=== PATIENT | female | born 1955 | race Caucasian/White ===

== ENCOUNTER 2016-12-13 16:08 | Emergency (ER) | payer OTHER ==
--- NOTE | 2016-12-13 16:22 | CPEKG ---
Heart Rate: 94 RR Interval: 638 P-R Interval: 180 QRSD Interval: 86 QT Interval: 376 QTC Interval: 471 P Elmore: 75 QRS Elmore: -1 T Wave Elmore: 69 EKG Severity - NORMAL ECG - EKG Impression: SINUS RHYTHM Electronically Signed By: Saul Javier 13-Dec-2016 16:47:30
--- NOTE | 2016-12-13 16:38 | EDPHY ---
H & P Stated Complaint: cp sob x 3 days Time Seen by Provider: 12/13/16 16:23 HPI/ROS: CHIEF COMPLAINT: Chest pain, dyspnea HISTORY OF PRESENT ILLNESS: The patient presents to the ED with 3 days of a vague chest pressure and mild dyspnea. She reports her symptoms are variable however never entirely resolved. She denies any pleuritic chest pain. She has had some mild symptoms of indigestion characterized by "heartburn." The patient denies fever, cough, weight gain. She has no prior history of cardiac or pulmonary disease. The patient does have a history of breast cancer status post bilateral mastectomy 2007. She also has thrombocytosis. The patient states her symptoms are mild in nature. She denies any acute abdominal pain. She denies any obvious precipitant to the symptoms. REVIEW OF SYSTEMS: A comprehensive 10 point review of systems is otherwise negative aside from elements mentioned in the history of present illness. Source: Patient Exam Limitations: No limitations - Personal History Current Tetanus/Diphtheria Vaccine: Yes - Medical/Surgical History Hx Asthma: No Hx Chronic Respiratory Disease: No Hx Diabetes: No Hx Cardiac Disease: No Hx Renal Disease: No Hx Cirrhosis: No Hx Alcoholism: No Hx HIV/AIDS: No Hx Splenectomy or Spleen Trauma: No Other PMH: breast cancer/mastectomy - Social History Smoking Status: Never smoked - Physical Exam Exam: General Appearance: Alert, no distress Eyes: Pupils equal and round no pallor or injection ENT, Mouth: Mucous membranes moist Respiratory: There are no retractions, lungs are clear to auscultation Cardiovascular: Regular rate and rhythm Gastrointestinal: Abdomen is soft and nontender, no masses, bowel sounds normal Neurological: A&O, normal motor function, normal sensory exam, normal cranial nerves Skin: Warm and dry, no rashes Musculoskeletal: Neck is supple nontender Extremities: symmetrical, full range of motion Constitutional: Initial Vital Signs Temperature (C) 36.5 C 12/13/16 16:11 Heart Rate 90 12/13/16 16:11 Respiratory Rate 18 12/13/16 16:11 Blood Pressure 158/111 H 12/13/16 16:11 O2 Sat (%) 98 12/13/16 16:11 O2 Delivery Mode Room Air Allergies/Adverse Reactions: No Known Allergies Allergy (Unverified 12/13/16 16:11) Home Medications: Medication Instructions Recorded Letrozole 12/13/16 Medical Decision Making - Diagnostics EKG Interpretation: EKG: Complete interpretation has been separately recorded in the [employer] archive. Summary impression: Sinus rhythm, rate 94 Imaging Results: Imaging Impressions Chest/Thorax CTA 12/13/16 17:20 Impression: 1. No evidence of pulmonary embolus using CT protocol. 2. Normal CT chest. 3. Moderate disk space narrowing along the left side of T8-T9 with endplate sclerosis and osteophyte. ED Course/Re-evaluation: The patient presents to the ED with several days of dyspnea and a vague nonexertional chest discomfort. The patient has no risk factors for coronary artery disease aside from a family medical history. She has had no history of exertional chest pain or shortness of breath. The patient does have a remote history of breast cancer. The patient's workup consisted of an EKG which was normal, a negative troponin, an unremarkable chest x-ray and a slightly positive D-dimer. Given the patient's history of breast cancer, a CT pulmonary angiogram was obtained which demonstrates no evidence of PE, pleural effusion, intrathoracic mass or pneumothorax. The patient was reexamined several times by myself over a 4 hour period. She remained chest pain-free throughout her stay in the emergency department. I have explained to the patient that I feel she is low risk for acute coronary syndrome but we have not fully excluded this entity. Given her family history I did recommend close follow up with Cardiology and even admission to the hospital for observation this evening. The patient prefers to go home and follow up with Cardiology as an outpatient. She does understand that we have not fully exclude occult coronary artery disease and she is comfortable returning to the ED for any progressive or worsening symptoms. Differential Diagnosis: Differential diagnosis considered includes pulmonary embolism, pleurisy, heart failure, pneumonia, pneumothorax, anemia, metabolic abnormality - Data Points Laboratory Results: Laboratory Results 12/13/16 16:14 12/13/16 16:14 12/13/16 12/13/16 12/13/16 16:14 16:14 16:14 WBC 9.12 10^3/uL 10^3/uL (3.80-9.50) RBC 4.88 10^6/uL 10^6/uL (4.18-5.33) Hgb 16.0 g/dL g/dL (12.6-16.3) Hct 44.7 % % (38.0-47.0) MCV 91.6 fL fL (81.5-99.8) MCH 32.8 pg pg (27.9-34.1) MCHC 35.8 g/dL g/dL (32.4-36.7) RDW 13.8 % % (11.5-15.2) Plt Count 840 10^3/uL H 10^3/uL (150-400) MPV 10.4 fL fL (8.7-11.7) Neut % (Auto) 65.0 % % (39.3-74.2) Lymph % (Auto) 23.7 % % (15.0-45.0) [place] % (Auto) 7.8 % % (4.5-13.0) Eos % (Auto) 2.3 % % (0.6-7.6) Baso % (Auto) 1.0 % % (0.3-1.7) Nucleat RBC Rel Count 0.0 % % (0.0-0.2) Absolute Neuts (auto) 5.93 10^3/uL 10^3/uL (1.70-6.50) Absolute Lymphs (auto) 2.16 10^3/uL 10^3/uL (1.00-3.00) Absolute Monos (auto) 0.71 10^3/uL 10^3/uL (0.30-0.80) Absolute Eos (auto) 0.21 10^3/uL 10^3/uL (0.03-0.40) Absolute Basos (auto) 0.09 10^3/uL 10^3/uL (0.02-0.10) Absolute Nucleated RBC 0.00 10^3/uL 10^3/uL (0-0.01) Immature Gran % 0.2 % % (0.0-1.1) Immature Gran # 0.02 10^3/uL 10^3/uL (0.00-0.10) Platelet Estimate INCREASED H (ADEQ) D-Dimer 0.98 ug/mLFEU H ug/mLFEU (0.00-0.50) Sodium 141 mEq/L mEq/L (134-144) Potassium 4.3 mEq/L mEq/L (3.5-5.2) Chloride 104 mEq/L mEq/L (97-110) Carbon Dioxide 25 mEq/l mEq/l (22-31) Anion Gap 12 mEq/L mEq/L (8-16) BUN 11 mg/dL mg/dL (7-23) Creatinine 0.7 mg/dL mg/dL (0.6-1.0) Estimated GFR > 60 Glucose 95 mg/dL mg/dL (70-100) Calcium 10.3 mg/dL mg/dL (8.5-10.4) Troponin I < 0.012 ng/mL ng/mL (0.000-0.034) NT-Pro-B Natriuret Pep 94 pg/mL pg/mL (0-125) Departure - Departure Disposition: Home, Routine, Self-Care Clinical Impression: Chest pain Condition: Good Instructions: Chest Pain (ED) Additional Instructions: 1. Based upon the testing done in the Emergency Department today we see no evidence of a heart attack. 2. We are unable to fully exclude coronary artery disease based upon the testing available in the Emergency Department. 3. For this reason, we would like you to be seen by cardiology for consideration of additional testing within the next 3 days. 4. Please contact the patient safety tech you have been referred to schedule this appointment as soon as possible. Their offices are typically open from 8:30am- 5pm M-F. 5. Please return to the Emergency Department immediately for any recurrent chest pain, difficulty breathing or other concerns. Referrals: Nabeel Lang MD [Medical Doctor] - As per Instructions
[2016-12-13 17:29] LABS: PLATELET COUNT 840 10^3/uL (150-400)
[2016-12-13] MEDS ORDERED: IOPAMIDOL (ISOVUE 370) 100 ML BTL IV ONE (17:56)
[2016-12-13 20:16] VITALS: BP 147/101; PULSE 72; RESP 16; TEMP 98.2; O2SAT 96
== END 2016-12-13 20:16 | disposition home or self-care (01) ==
DX: R07.9 Chest pain, unspecified (principal); Z85.3 Personal history of malignant neoplasm of breast
CPT/HCPCS: Q9967

== ENCOUNTER → 2017-01-20 | Outpatient (CLI) | payer OTHER | LOC: FIMAGING 14:48 | PROVIDERS: ATTEND Internal Medicine Hematology & Oncology | DX: Z13.820 Encounter for screening for osteoporosis (principal); M85.89 Other specified disorders of bone density and structure, multiple sites ==

== ENCOUNTER → 2017-03-09 | Outpatient (CLI) | payer OTHER ==
[~2017-03-09] MED LIST: GADOBUTROL 10 ML VIAL IVP ONE
== END ==
LOC: FIMAGING 15:04
PROVIDERS: ATTEND Internal Medicine Hematology & Oncology
DX: M50.21 Other cervical disc displacement, high cervical region (principal); M48.02 Spinal stenosis, cervical region; M46.92 Unspecified inflammatory spondylopathy, cervical region
CPT/HCPCS: A9585

== ENCOUNTER 2017-07-14 06:01 | Inpatient (IN) | payer OTHER ==
[2017-07-14] MEDS ORDERED: ACETAMINOPHEN 325 MG TAB PO ONE (06:43)
[2017-07-14] MEDS ORDERED: FAMOTIDINE 20 MG TAB PO ONE (06:43)
[2017-07-14] MEDS ORDERED: DEXAMETHASONE 4 MG/ML VIAL IVP ONE (06:43)
[2017-07-14] MEDS ORDERED: LR 1,000 ML IV ONE (06:43)
[2017-07-14] MEDS ORDERED: ceFAZolin 2 GM/DEXTROSE 100 ML IV ONE (06:43)
[2017-07-14] MEDS ORDERED: LIDOCAINE 1% 2 ML INJ ID PRN (06:43)
--- NOTE | 2017-07-14 07:39 | PDANEPAE ---
ANE Past Medical History - Cardiovascular History Hx Hypertension: Yes Hx Arrhythmias: No Hx Chest Pain: No Hx Coronary Artery / Peripheral Vascular Disease: No Hx CHF / Valvular Disease: No Hx Palpitations: No - Pulmonary History Hx COPD: No Hx Asthma/Reactive Airway Disease: No Hx Recent Upper Respiratory Infection: No Hx Oxygen in Use at Home: No Hx Sleep Apnea: No Sleep Apnea Screening Result - Last Documented: Negative - Neurologic History Hx Cerebrovascular Accident: No Hx Seizures: No Hx Dementia: No - Endocrine History Hx Diabetes: No Hypothyroid: No Hyperthyroid: No Obesity: no - Renal History Hx Renal Disorders: No - Liver History Hx Hepatic Disorders: No - Neurological & Psychiatric Hx Hx Neurological and Psychiatric Disorders: No - Cancer History Hx Cancer: Yes Cancer History Comment: breast CA - Congenital Disorder History Hx Congenital Disorders: No - GI History GERD: no Hx Gastrointestinal Disorders: No - Other Health History Other Health History: mild essential thrombocytosis - Chronic Pain History Chronic Pain: No - Surgical History Prior Surgeries: mastectomy bilat. lymph node removal on left. restricted limb on left ANE Review of Systems Review of Systems: - Exercise capacity METS (RN): 5 METS ANE Patient History - Allergies Allergies/Adverse Reactions: No Known Allergies Allergy (Unverified 12/13/16 16:11) - Home Medications Home Medications: Letrozole [Femara 2.5 mg (*)] 2.5 mg PO DAILY 12/13/16 [Last Taken 1 Day Ago ~] Atorvastatin Calcium [Lipitor 40 mg (*)] 40 mg PO DAILY 06/30/17 [Last Taken 2 Days Ago ~07/12/17] Herbals/Supplements -Info Only 1 ea PO DAILY 06/30/17 [Last Taken 2 Weeks Ago ~ 06/30/17] Metoprolol Succinate [Toprol Xl] 12.5 mg PO DAILY 06/30/17 [Last Taken 2 Days Ago ~07/12/17] Multivitamins [Multivitamin (*)] 1 each PO DAILY 06/30/17 [Last Taken 2 Weeks Ago ~06/30/17] - NPO status NPO Since - Liquids (Date): 07/14/17 NPO Since - Liquids (Time): 04:45 NPO Since - Solids (Date): 07/13/17 NPO Since - Solids (Time): 19:00 - Anes Hx Anes Hx: no prior problems - Smoking Hx Smoking Status: Never smoked - Alcohol Use Alcohol Use: Rarely - Family Anes Hx Family Anes Hx: neg - N/A Family Hx Anesthesia Complications: none ANE Labs/Vital Signs - Vital Signs Blood Pressure: 157/97 Heart Rate: 84 Respiratory Rate: 16 O2 Sat (%): 100 Height: 180.34 cm Weight: 69.4 kg ANE Physical Exam - Airway Neck exam: FROM Mallampati Score: Class 2 Mouth exam: normal dental/mouth exam - Pulmonary Pulmonary: no respiratory distress, no rales or rhonchi, clear to auscultation - Cardiovascular Cardiovascular: regular rate and rhythym, no murmur, rub, or gallop - ASA Status ASA Status: II ANE Anesthesia Plan Anesthesia Plan: MAC, spinal Total IV Anesthesia: No
[2017-07-14] MEDS ORDERED: TRANEXAMIC ACID 3,000 MG in NS (SYRINGE) 50 ML IRR ONE (08:15)
[2017-07-14] MEDS ORDERED: ROPIVACAINE 0.2% 80 MG, EPINEPHrine 0.2 MG, KETOROLAC TROMETHAMINE 30 MG in SYRINGE 0 ML IU ONE (08:15)
[2017-07-14] MEDS ORDERED: TRANEXAMIC ACID 3,000 MG/50 ML BAG IRR ONE (08:17)
[2017-07-14] MEDS ORDERED: MIDAZOLAM 2 MG/2 ML VIAL IVP ONE (08:45)
[2017-07-14] MEDS ORDERED: MIDAZOLAM 2 MG/2 ML VIAL ONE (08:49)
[2017-07-14] MEDS ORDERED: fentaNYL 100 MCG/2 ML INJ ONE ×2 (09:02→10:54)
[2017-07-14] MEDS ORDERED: PROPOFOL/EMULSION 500 MG/50 ML BOTTLE IV ONE (09:02)
--- NOTE | 2017-07-14 09:27 | PDHPUP ---
History & Physical Update H&P update statement: This history and physical update is based on an assessment of the patient which was completed after admission or registration (within 24 hours), but prior to the surgery/procedure. H&P update: H&P reviewed & patient examined, no change in patient's condition since H&P completed
[2017-07-14] MEDS ORDERED: PHENYLEPHRINE HCL 100 MCG/ML SYR ONE (10:03)
[2017-07-14] MEDS ORDERED: BISACODYL 10 MG SUPP PR PRN (10:31)
[2017-07-14] MEDS ORDERED: TEMAZEPAM 15 MG CAP PO PRN (10:31)
[2017-07-14] MEDS ORDERED: MAGNESIUM HYDROXIDE 30 ML UDCUP PO PRN (10:31)
[2017-07-14] MEDS ORDERED: DIPHENOXYLATE/ATROPINE LOMOTIL 1 TAB PO PRN (10:31)
[2017-07-14] MEDS ORDERED: POLYETHYLENE GLYCOL 3350 17 GM PKT PO PRN (10:31)
[2017-07-14] MEDS ORDERED: ONDANSETRON DISINTEGRATING 4 MG TAB PO PRN (10:31)
[2017-07-14] MEDS ORDERED: diphenhydrAMINE 25 MG CAP PO PRN (10:31)
[2017-07-14] MEDS ORDERED: PROMETHAZINE HCL 25 MG/ML INJ IVP PRN ×2 (10:31→11:00)
[2017-07-14] MEDS ORDERED: CYCLOBENZAPRINE 10 MG TAB PO PRN (10:31)
[2017-07-14] MEDS ORDERED: ONDANSETRON 4 MG/2 ML VIAL IVP PRN ×2 (10:31→11:00)
[2017-07-14] MEDS ORDERED: LACTULOSE 20 GM/30 ML UDCUP PO PRN (10:31)
[2017-07-14] MEDS ORDERED: METOCLOPRAMIDE 10 MG/2 ML VIAL IVP PRN (10:31)
[2017-07-14] MEDS ORDERED: PROMETHAZINE HCL 25 MG SUPPR PR PRN (10:31)
--- NOTE | 2017-07-14 10:34 | POSTOPPROG ---
Post Op Note Date of Operation: 07/14/17 Surgeon: Sreedhar Pressley Nursing Officer: bright pressley Anesthesiologist: dr. booker Anesthesia: Spinal Pre-op Diagnosis: right hip OA Post-op Diagnosis: same Indication: right hip pain due to OA that failed conservative measures Procedure: R BRYSON Findings: severe hip OA Inf/Abcess present in the surg proc area at time of surgery?: No EBL: 100-500
[2017-07-14] MEDS ORDERED: epHEDrine SULFATE 10 MG/ML SYR IVP PRN (11:00)
[2017-07-14] MEDS ORDERED: oxyCODONE IR 5 MG TAB PO PRN (11:00)
[2017-07-14] MEDS ORDERED: ACETAMINOPHEN 500 MG TAB PO PRN (11:00)
[2017-07-14] MEDS ORDERED: HYDROmorphONE/DILAUDID 1 MG/ML INJ IVP PRN (11:00)
[2017-07-14] MEDS ORDERED: LR 500 ML IV PRN (11:00)
[2017-07-14] MEDS ORDERED: LABETALOL HCL 5 MG/ML 20 ML MDV IVP PRN (11:00)
[2017-07-14] MEDS ORDERED: HYDROCODONE/APAP 5/325 TAB PO PRN (11:00)
[2017-07-14] MEDS ORDERED: PHENYLEPHRINE HCL 100 MCG/ML SYR IVP PRN (11:00)
[2017-07-14] MEDS ORDERED: NALOXONE HCL 0.4 MG/ML INJ IVP PRN (11:00)
--- NOTE | 2017-07-14 11:02 | POSTANESTH ---
Post Anesthetic Evaluation Cardiovascular Status: Normal, Stable Respiratory Status: Normal, Stable Level of Consciousness/Mental Status: Can Participate in Eval Pain Control: Adequate, Prn Tx Ordered Nausea/Vomiting Control: Adequate, Prn Tx Ordered Complications Possibly Related to Anesthesia: None Noted
[2017-07-14] MEDS ORDERED: HYDROmorphONE/DILAUDID 1 MG/ML INJ ONE (11:03)
[2017-07-14] MEDS: fentaNYL 100 MCG/2 ML INJ IVP PRN ×2 (11:06→11:07)
--- NOTE | 2017-07-14 12:06 | PDMN ---
Medical Necessity Medical [place] [facility] [place] ALEJANDRA INPT only R BRYSON
[2017-07-14] MEDS: ACETAMINOPHEN 325 MG TAB PO SCH ×2 (12:29→22:37)
[2017-07-14] MEDS: oxyCODONE IR 5 MG TAB PO PRN (12:30)
[2017-07-14] MEDS: LR 1,000 ML IV SCH ×2 (12:44→22:47)
[2017-07-14] MEDS ORDERED: WARFARIN SODIUM 5 MG TAB PO SCH (16:00)
[2017-07-14] MEDS: ceFAZolin 2 GM/DEXTROSE 100 ML IV SCH (16:27)
[2017-07-14] MEDS ORDERED: NS 500 ML IV SCH (17:30)
--- NOTE | 2017-07-14 18:07 | GOP ---
[f rep st] OPERATIVE REPORT DATE OF OPERATION: 07/14/2017 SURGEON: Erick Siddiqui MD MILKING WORKER: ANITA Vickers PREOPERATIVE DIAGNOSIS: Right hip osteoarthritis. POSTOPERATIVE DIAGNOSIS: Right hip osteoarthritis. PROCEDURE PERFORMED: Right total hip arthroplasty with x-ray. FINDINGS: ESTIMATED BLOOD LOSS: 200 cc. INDICATIONS: The patient has progressively worsening arthritis of the hip which has failed medical management. The patient understands the treatment options including continued non-operative care and has selected surgical intervention. The patient has decided to undergo total hip arthroplasty via the direct anterior approach, understanding the risks of the procedure including , but not limited to, neurovascular injury, infection, persistent pain, component wear and loosening, deep venous thrombosis, pulmonary embolism, limb length inequality, hip instability (including dislocation), and intra-operative fractures. DESCRIPTION OF PROCEDURE: After proper identification of the patient including verification and marking the surgical site, the patient was brought to the operating room and placed in the supine position. All bony prominences were well padded. Anesthesia was induced without complication and intravenous prophylactic antibiotics were administered prior to skin incision. The operative leg was placed in the Trumpf Arch table extension and the well leg in a [place] leg talbert. The patient was prepped and draped in the usual sterile fashion. The C-arm was draped for intra-operative fluoroscopy to check acetabular position, femoral component position including leg length and femoral offset. Attention was then drawn to surgical exposure of the hip. An incision was made with a #10 Bard Rebel blade starting 3 cm lateral and 3 cm distal to the anterior superior iliac spine measuring 8-10 cm and coursing distally toward the greater trochanter. The skin and subcutaneous tissues were divided sharply down to the fascia minor. The fascia minor was incised in line with the skin incision exposing the underlying tensor fascia minor muscle. The muscle was bluntly elevated from the fascia and the first extracapsular Cobra retractor was placed laterally at the junction of the superior femoral neck and greater trochanter. The lateral femoral circumflex vessels were identified, cauterized , and divided with the Aquamantys bipolar cautery. The deep investing fascia of the TFL was divided to allow proper mobilization of the muscle preventing damage during the retraction. The reflected head of the rectus femoris muscle was elevated off the anterior hip capsule and a medial Cobra retractor was placed just proximal to the lesser trochanter. The anterior capsulotomy was made sharply from the superolateral acetabulum to the saddle junction of the superior femoral neck and greater trochanter, then coursing inferomedial towards the lesser trochanter. The retractors were then placed in the intracapsular position for femoral neck osteotomy. Corresponding to pre-operative templating, the osteotomy was made with the oscillating saw carefully protecting the greater trochanter and soft tissues. The femoral head was removed from the acetabulum with a corkscrew and confirmed to be severely arthritic with exposed bone, deformity and osteophytes. Similar findings were confirmed in the acetabulum. The Arch table extension was then placed in 40 degrees external rotation. Attention was then drawn to the acetabular preparation. After placement of the anterior and posterior Cobra retractors outside the labrum and intracapsular, the circumferential labrum was removed sharply. The foveal contents were then removed and hemostasis obtained with cautery. The first reamer selected was sized using the removed femoral head. Reaming began with medialization and then commenced in 2 mm increments at 45 degrees of abduction and 15 degrees of anteversion using fluoroscopic navigation. Reaming ceased 1 mm less than the definitive acetabular component and corresponded to the pre-operative templating. The final acetabular component was inserted using fluoroscopy to achieve proper orientation yielding excellent purchase and stability in the acetabulum. The final acetabular liner was then placed and its seating confirmed. Attention was then turned to the femur. The Arch table extension was placed in extension and adduction, delivering the osteotomized femoral neck into the wound. A 2-pronged femoral elevator was placed at the calcar and another at the tip of the greater trochanter. The posterolateral capsule was released with cautery allowing mobilization of the femur lateral and anterior for preparation. The external rotators were visualized and preserved. A curette and rongeur were used to open the starting point for broaching. Serial broaching started with the #0 broach and ended with the broach that exhibited excellent fit in the proximal femur. A change in pitch during mallet strikes was accompanied by the inability to advance the broach any further. The trial reduction was performed and fluoroscopic navigation was utilized to check limb length. Adjustments were made to equalize limb length accordingly. After the final trials were accepted they were removed and the wound was copiously lavaged. The femoral component was seated to the same depth as the final broach and the femoral head was impacted onto the clean trunnion. The hip was then reduced for the final time and once more fluoroscopy was used to check that limb length equality was achieved. The wound was irrigated and closed in layers, the fascia minor with 2-0 Quill, the subcutaneous tissue with 2-0 Quill, and the skin with Dermabond. Sterile dressings were applied. Final sharps and sponge counts were accurate. The patient was then transferred to a hospital bed and brought to the recovery room in stable condition. SURGEON: Erick Siddiqui MD IMPLANTS: Accolade II size 5 at 127. Acetabular component Trident II, 52 mm. The liner is a Trident X3, 36 mm. The head is a Biolox Delta 36 mm, +0. /[id number]/MODL MTDD
[2017-07-14] MEDS: SENNOSIDES/DOCUSATE SODIUM TAB PO SCH (20:30)
[2017-07-14] MEDS: FAMOTIDINE 20 MG TAB PO SCH (20:31)
[2017-07-15] MEDS: ACETAMINOPHEN 325 MG TAB PO SCH ×2 (00:07→05:35)
[2017-07-15] MEDS: ceFAZolin 2 GM/DEXTROSE 100 ML IV SCH (00:08)
[2017-07-15] MEDS: oxyCODONE IR 5 MG TAB PO PRN (00:09)
[2017-07-15 05:51] LABS: INR 1.29 (0.83-1.16); PROTIME(PATIENT) 16.3 SEC (12.0-15.0)
[2017-07-15 07:57] VITALS: BP 126/69
[2017-07-15] MEDS ORDERED: ENOXAPARIN 40 MG/0.4 ML SYR SC SCH (09:00)
[2017-07-15] MEDS ORDERED: ATORVASTATIN CALCIUM 40 MG TAB PO SCH (09:00)
[2017-07-15] MEDS ORDERED: LETROZOLE 2.5 MG TAB PO SCH (09:00)
[2017-07-15] MEDS ORDERED: METOPROLOL SUCCINATE XR 25 MG TAB PO SCH (09:00)
--- NOTE | 2017-07-15 09:06 | SOAPPROG ---
SOAP Progress Note Assessment/Plan: Assessment: Patient is doing well POD 1 s/p R BRYSON Pain management: pain is well controlled on oral pain meds. VTE ppx: recommend coumadin for 3 weeks and lovenox, INR 1.29 cont SHELBY and SCDs Anemia: level is expected initially postop. Asymptomatic. Continue to monitor D/c planning: d/c to home today pending release from PT syncopal episodes: two episodes yesterday, hypotensive each time 60/40. IV bolus, increased oral intake. resolved today. continue to monitor closely. Plan: 07/15/17 09:03 Subjective: Em is doing better today, denies SOB, chest pain and n/v. Objective: Vital Signs Temp Pulse Resp BP Pulse Ox 37.1 C 102 H 16 126/69 H 97 07/15/17 07:55 07/15/17 07:55 07/15/17 07:55 07/15/17 07:55 07/15/17 07:55 Laboratory Results 07/15/17 05:11 07/14/17 07/15/17 07/16/17 05:59 05:59 05:59 Intake Total 3530 Output Total 1450 Balance 2080 PT 16.3 SEC (12.0-15.0) H 07/15/17 05:11 INR 1.29 (0.83-1.16) H 07/15/17 05:11 RLE: incision dressing is clean and dry, NVI, +pf/df ICD10 Worksheet Patient Problems: Problems Problem Status Onset Primary localized osteoarthritis of right hip Acute
[2017-07-15] MEDS: FAMOTIDINE 20 MG TAB PO SCH (09:20)
[2017-07-15] MEDS: SENNOSIDES/DOCUSATE SODIUM TAB PO SCH (09:26)
== END 2017-07-15 11:04 | disposition home or self-care (01) | DRG 470 ==
LOC: FSGY 06:01 → F3N 10:31 → EDSTATUS 15:15
PROVIDERS: ADMIT Orthopaedic Surgery; ATTEND Orthopaedic Surgery
PROC: 0SR904Z Replacement of Right Hip Joint with Ceramic on Polyethylene Synthetic Substitute, Open Approach (ICD-10-PCS; principal; 2017-07-14 09:15)
DX: M16.11 Unilateral primary osteoarthritis, right hip (principal); I10 Essential (primary) hypertension; Z85.3 Personal history of malignant neoplasm of breast
CPT/HCPCS: 97161-GP; J0690; J1100; J1170; J1650; J2250; J2370; J2704; J3010